=== PATIENT | female | born 1950 | race Caucasian/White ===

== ENCOUNTER 2018-01-27 09:43 | Day surgery (SDC) | payer MEDICARE, OTHER ==
[~2018-01-27] VITALS: Ht 162.6 cm; Wt 112.4 kg
[~2018-01-27 09:43] MED LIST: BUPIVACAINE/PF-EPI 0.5% 1:200K ONE; HEPARIN 1,000 UNITS/ML, 10ML ONE
[2018-01-27 10:15] VITALS: BP 162/90
[2018-01-27] MEDS ORDERED: SODIUM CHLORIDE 0.9% 1,000 ML IV SCH (10:20)
[2018-01-27] MEDS ORDERED: INSU100C5 SQ-INSULIN (11:07)
[2018-01-27] MEDS ORDERED: AMLO10TA4 PO (11:07)
[2018-01-27] MEDS ORDERED: PARO40TA61 PO (11:07)
[2018-01-27] MEDS ORDERED: ATOR20TA37 PO (11:07)
[2018-01-27] MEDS ORDERED: ALLO100T30 PO (11:07)
[2018-01-27] MEDS ORDERED: CALC0.5C9 PO (11:07)
[2018-01-27] MEDS ORDERED: NPH,100V5 SQ (11:07)
[2018-01-27] MEDS ORDERED: LISI2.5T PO (11:07)
[2018-01-27] MEDS ORDERED: GABA600T7 PO (11:07)
[2018-01-27] MEDS ORDERED: SEVE800T8 PO (11:07)
[2018-01-27] MEDS ORDERED: FENTANYL PF 100 MCG/2ML ONE (12:00)
[2018-01-27] MEDS ORDERED: MIDAZOLAM 1 MG/ML, 2ML ONE (12:00)
[2018-01-27] MEDS ORDERED: SUCCINYLCHOLINE 20 MG/ML, 10ML ONE (12:43)
[2018-01-27] MEDS ORDERED: GLYCOPYRROLATE 0.2MG/1ML, 5ML ONE (12:43)
[2018-01-27] MEDS ORDERED: CEFAZOLIN 1,000 MG ONE (12:43)
[2018-01-27] MEDS ORDERED: NEOSTIGMINE 1 MG/ML, 10ML ONE (12:43)
[2018-01-27] MEDS ORDERED: ROCURONIUM 10MG/ML,5ML ONE (12:43)
[2018-01-27] MEDS ORDERED: PROPOFOL 10 MG/ML, 20ML ONE (12:43)
[2018-01-27] MEDS ORDERED: BUPIVACAINE/PF-EPI 0.5% 1:200K INFIL ONE (13:10)
[2018-01-27] MEDS ORDERED: PROTAMINE SULFATE 10 MG/ML, 5ML ONE (13:50)
[2018-01-27] MEDS ORDERED: LABETALOL 20 MG/4 ML ONE (14:19)
[2018-01-27] MEDS ORDERED: LABETALOL 5MG/ML, 20ML IV PRN (14:30)
[2018-01-27] MEDS ORDERED: OXYcodone 5 MG/5 ML ORAL.SOL UDC PO PRN (14:30)
[2018-01-27] MEDS ORDERED: HYDROmorphone 1 MG/ML, 1ML IV PRN (14:30)
[2018-01-27] MEDS ORDERED: MIDAZOLAM 1 MG/ML, 2ML IV PRN (14:30)
[2018-01-27] MEDS ORDERED: FENTANYL PF 100 MCG/2ML IV PRN (14:30)
[2018-01-27] MEDS ORDERED: ONDANSETRON 2MG/ML, 2ML IVPush PRN (14:30)
[2018-01-27] MEDS ORDERED: MEPERIDINE/PF 25MG/0.5ML IVPush PRN (14:30)
[2018-01-27 15:56] LABS: CLOSTRIDIUM DIFFICILE ANTIGEN NEGATIVE; CLOSTRIDIUM DIFFICILE TOXIN NEGATIVE (Negative)
== END 2018-01-27 16:30 | disposition home or self-care (01) ==
LOC: OUT 09:43
PROVIDERS: ATTEND Surgery Vascular Surgery
DX: E11.22 Type 2 diabetes mellitus with diabetic chronic kidney disease (principal); I12.0 Hypertensive chronic kidney disease with stage 5 chronic kidney disease or end stage renal disease; N18.6 End stage renal disease; Z79.84 Long term (current) use of oral hypoglycemic drugs
CPT/HCPCS: 36415; 36821; 49324; 80047; 82962; 87324; 93005; C1750; J0330; J0690; J1644; J2250; J2704; J2710; J2720; J3010; J3490; J7030

== ENCOUNTER 2018-04-14 07:36 | Day surgery (SDC) | payer MEDICARE, OTHER ==
[~2018-04-14] VITALS: Ht 162.6 cm; Wt 123.0 kg
[~2018-04-14 07:36] MED LIST changes: +ALLO100T30 PO; +AMLO10TA4 PO; +ATOR20TA37 PO; -BUPIVACAINE/PF-EPI 0.5% 1:200K ONE; +CALC0.5C9 PO; +GABA600T7 PO; +INSU100C5 SQ-INSULIN; +LISI2.5T PO; +NPH,100V5 SQ; +PARO40TA61 PO; +SEVE800T8 PO
[2018-04-14] MEDS ORDERED: SODIUM CHLORIDE 0.9% 1,000 ML IV SCH (09:00)
[2018-04-14] MEDS ORDERED: ASPI-496 PO (09:06)
[2018-04-14] MEDS ORDERED: COLC0.6T37 PO (09:06)
[2018-04-14] MEDS ORDERED: FURO20TA3 PO (09:06)
[2018-04-14] MEDS ORDERED: MULT-658 PO (09:06)
[2018-04-14] MEDS ORDERED: FENTANYL PF 250 MCG/5ML ONE (09:07)
[2018-04-14] MEDS ORDERED: MIDAZOLAM 1 MG/ML, 2ML ONE (09:07)
[2018-04-14] MEDS ORDERED: PROPOFOL 10 MG/ML, 20ML ONE (09:08)
[2018-04-14] MEDS ORDERED: CEFAZOLIN 1,000 MG ONE ×3 (09:09→09:58)
[2018-04-14] MEDS ORDERED: SODIUM CHLORIDE 0.9% PF 10ML ONE (09:09)
[2018-04-14 09:11] VITALS: BP 134/64
[2018-04-14 09:27] LABS: INTERNATIONAL NORMALIZED RATIO 0.99 (0.93-1.1); PROTHROMBIN TIME 10.5 Seconds (9.6-11.5)
[2018-04-14] MEDS ORDERED: FENTANYL PF 100 MCG/2ML IV PRN (10:00)
[2018-04-14] MEDS ORDERED: OXYcodone 5 MG/5 ML ORAL.SOL UDC PO PRN (10:00)
[2018-04-14] MEDS ORDERED: PROMETHAZINE 25 MG SUPP PR PRN (10:00)
[2018-04-14] MEDS ORDERED: PROMETHAZINE 12.5 MG SUPP PR PRN (10:00)
[2018-04-14] MEDS ORDERED: hydrALAzine 20 MG/ML, 1ML IV PRN (10:00)
[2018-04-14] MEDS ORDERED: ONDANSETRON 2MG/ML, 2ML IV PRN (10:00)
[2018-04-14] MEDS ORDERED: PROMETHAZINE 25 MG/ML, 1ML IM PRN ×2 (10:00)
[2018-04-14] MEDS ORDERED: HYDROmorphone 2 MG/ML, 1ML IVPush PRN (10:00)
[2018-04-14] MEDS ORDERED: ONDANSETRON ODT 8 MG PO PRN (10:00)
[2018-04-14] MEDS ORDERED: LABETALOL 5MG/ML, 20ML IV PRN (10:00)
[2018-04-14] MEDS ORDERED: PROMETHAZINE 25 MG/ML, 1ML IV PRN (10:00)
[2018-04-14] MEDS ORDERED: hydrALAzine 20 MG/ML, 1ML ONE (10:08)
[2018-04-14] MEDS ORDERED: ONDANSETRON 2MG/ML, 2ML ONE (11:17)
[2018-04-14] MEDS ORDERED: ALBUTEROL SULFATE 2.5MG/0.5ML NPPB ONE (14:30)
== END 2018-04-14 15:30 | disposition home or self-care (01) ==
LOC: OUT 07:36
PROVIDERS: ATTEND Surgery Vascular Surgery
DX: T82.590A Other mechanical complication of surgically created arteriovenous fistula, initial encounter (principal); Y83.8 Other surgical procedures as the cause of abnormal reaction of the patient, or of later complication, without mention of misadventure at the time of the procedure; Y92.89 Other specified places as the place of occurrence of the external cause; E11.22 Type 2 diabetes mellitus with diabetic chronic kidney disease; I12.0 Hypertensive chronic kidney disease with stage 5 chronic kidney disease or end stage renal disease; N18.6 End stage renal disease; M10.9 Gout, unspecified; E78.5 Hyperlipidemia, unspecified; Z88.5 Allergy status to narcotic agent; Z79.899 Other long term (current) drug therapy; Z79.4 Long term (current) use of insulin; Z88.8 Allergy status to other drugs, medicaments and biological substances
CPT/HCPCS: 36415; 36832; 80047; 82962; 85610; 85730; J0360; J0690; J1644; J2250; J2405; J2704; J3010; J7030